=== PATIENT | male | born 1970 | race Caucasian/White ===

== ENCOUNTER 2021-09-28 13:53 | Emergency (ER) | payer BC ==
[2021-09-28 15:14] VITALS: BP 171/101; PULSE 66
== END 2021-09-28 18:12 | disposition home or self-care (01) ==
LOC: JP.ED 13:53
DX: N45.1 Epididymitis (principal)
CPT/HCPCS: 76870; 93976; 99281; 99284-25

== ENCOUNTER 2022-08-05 09:07 | Day surgery (SDC) | payer BC ==
[2022-08-05] MEDS ORDERED: Sodium Chloride 0.9% 1,000 ML IV SCH (10:00)
[2022-08-05] MEDS ORDERED: Midazolam 1 MG/ML 2 ML SDV ONE (11:33)
[2022-08-05] MEDS ORDERED: Propofol 200 MG/20 ML SDV ONE ×2 (11:33→11:49)
[2022-08-05] MEDS ORDERED: fentaNYL 100 MCG/2 ML SDV ONE (11:33)
[2022-08-05 12:50] VITALS: BP 142/89; PULSE 60
== END 2022-08-05 13:30 | disposition home or self-care (01) ==
LOC: JP.SDS 09:07
PROVIDERS: ATTEND Surgery
DX: Z12.11 Encounter for screening for malignant neoplasm of colon (principal); D12.4 Benign neoplasm of descending colon; D12.3 Benign neoplasm of transverse colon; I10 Essential (primary) hypertension; E78.5 Hyperlipidemia, unspecified; Z79.899 Other long term (current) drug therapy
CPT/HCPCS: 45380; 45385; J2250; J2704; J3010; J7030; 88305